=== PATIENT | female | born 1935 | race Caucasian/White ===

== ENCOUNTER 2016-12-14 01:11 | Observation (INO) | payer OTHER, MEDICARE ==
[~2016-12-14] VITALS: Ht 165.1 cm; Wt 70.8 kg
[~2016-12-14 01:11] MED LIST: ACETAMINOPHEN-COD #3 PO; ADVAIR 500-501 EACH INH; AUGMENTIN 875-1 EACH PO; CALTRATE 600600 MG PO; CENTRUM1 TA1 PO; CITALOPRAM HYDR20 MG PO; CLOPIDOGREL75 MG PO; COZAAR 100MG T100 MG PO; CRESTOR 10MG10 MG PO; DEEP SEA44 ML NAS; DIOVAN 160 MG160 MG PO; FERROUS SULFAT325 M1 PO; FERROUS SULFAT325 M3 PO; FOLIC ACID0.4 MG PO; FOLIC ACID0.8 MG PO; GOOD SENSE ASPI81 M1 PO; GUAIFENESI100 MG/5 M PO; GUAIFENESIN-COD10 ML PO; LEVOTHYROXINE0.05 M1 PO; LEVOTHYROXINE88 MCG PO; LOSARTAN POTASS50 M1 PO; MELOXICAM7.5 M1 PO; OCUVITE1 TA1 PO; PERCOCET 5-3251 EACH PO; SIMBRINZA 0.2%-18 ML OP; SYNTHROID75 MCG PO; TOPAMAX25 M1 PO; TYLENOL #31 TAB PO; TYLENOL325 M1 PO; VENTOLIN1 PUF INH; VITAMIN B122500 MCG PO; VITAMIN D1000 IU PO; VITAMIN D32000 I1 PO; XALATAN 0.50 GTT/1 B OPH; ZITHROMAX250 M2 PO
--- NOTE | 2016-12-14 16:38 | Operative Report ---
Operative/Inv Procedure Report Surgery Date: 12/14/16 Name of Procedure: Open reduction internal fixation of right humeral nonunion Bone grafting humeral nonunion Pre-Operative Diagnosis: Right humeral shaft nonunion Post-Operative Diagnosis: Same Estimated Blood Loss: 50ml to 100ml Surgeon/Molder Trimmer: REBECCA ESCALONA,Av TREJO Anesthesia: laryngeal mask airway Implants: 7-hole narrow [place] DCP plate Drains: None Specimens: None Complications: None Condition: Stable Operative Indication: Patient is an 80-year-old woman who injured her right dominant humerus. Patient injured the arm in June. She developed nonunion findings. Due to ongoing pain and lack of bony union on x-ray patient was treated with a bone stimulator which did not lead to full union. Therefore patient was instructed on options including open reduction internal fixation and bone grafting of the nonunion site. Due to the ongoing symptoms, she wished to proceed with surgical management. Risks, benefits and expectations of surgical and further nonsurgical options were discussed including but not limited to persistent arm pain, need for subsequent surgery, infection, injury to blood vessel or nerve, continued nonunion, malunion. Also specifically we discussed the fairly high risk of injuring the radial nerve which could lead to distal weakness. I discussed this with patient and family. They understood and wished to proceed with the surgical procedure that was recommended. Operative/Procedure Note Note: Technical description of the procedure. Patient was brought to the operating room and transferred to the operating table. Once under appropriate anesthesia the right upper extremity was prepped and draped in standard fashion. Preoperative IV antibiotics were given prophylactically. A anterior lateral incision was made just lateral to the biceps muscle belly. The incision was taken down careful dissection to the area of the nonunion site. There was a fairly large area of callus formation but clearly a nonunion below that. Portions of the callus were excised to access the nonunion site. After dissection and exposure of the fracture site I was satisfied with the position of the fracture. I was able to apply direct compression at the fracture site with manipulation. I should also mention that care was taken not to stray into the soft tissues posteriorly any dissection and needed to be done posteriorly was done and the subperiosteal fashion. This was in order to avoid any injury to the radial nerve. Also no traction was applied to the right upper extremity during manipulation of the fracture site. Care was also taken not to go too distal with our exposure since it was not necessary a son the fracture site. This would also avoid injury to the lateral cutaneous branch of the muscular cutaneous nerve. During the case hemostasis was obtained using cautery this was also done carefully to avoid any conduction to any nervous structure. Unsell was satisfied with the exposure and removal of some of the bone callus. Some of the bone callus was used as bone graft later on the case. I also used Vitoss bone substitute to fortify grafting. I placed 2 interfragmentary screws across the fracture site from anterior to posterior in standard fashion by over drilling the near cortex. Appropriate length screws were applied. I also made sure that I did not plunge through the far cortex in order to avoid any injury to underlying radial nerve structure. I was satisfied with the 2 compression screws. I then applied a 7-hole large fragment narrow DCP plate which fit patient's anatomy the best. I placed 3 bicortical screws proximally and distally. With the addition of the interfragmentary screws I had 8 cortices fixation proximally and distally. I was satisfied with this fixation. Copious irrigation followed. Hemostasis was obtained throughout the procedure. I then closed the interval between the biceps and brachialis loosely over the plate construct. Subcutaneous tissues closed in 2 layers with 2-0 Vicryl. The copious irrigation was done with antibiotic solution and this was done prior to application of the bone graft and the bone substitute. Skin was closed with a interrupted nylon suture Bee and appropriate dressings were applied and patient was awakened and taken the recovery room in good condition. No intraoperative complications blood loss was approximately 100 mL Discharge Disposition: PACU
[2016-12-14 19:00] VITALS: BP 100/50
--- NOTE | 2016-12-14 20:24 | NUR ---
NURSING NOTE; LATE ENTRY; PT ADMITTED TO FROM PACU AT 1900. PT ALERT AND OREINTEDX3. PT DENIES CP, +PULSES, 2LNC, DENIES SOB, LCTA. PT NAIMA DSG CDI, COVERED BY AN ADAM DSG. PT SKIN INTACT. PT COMPLAINS OF PAIN 5 OUT OF 10 PAIN AT THIS TIME. PRN PAIN MED GIVEN. PT ORIENTED TO ROOM AND CALL DE LUNA. WILL CONTINUE TO MONITOR.
[2016-12-14 22:19] VITALS: BP 102/58
[2016-12-15 00:45] VITALS: BP 126/60
[2016-12-15 03:06] VITALS: BP 110/58
--- NOTE | 2016-12-15 06:21 | NUR ---
PT C/O CHEST PAIN DESCRIBED "LIKE SOMENE KICKED ME". VSS, NOTIFIED SURGICAL CEFERINO PHELPS.
--- NOTE | 2016-12-15 06:24 | NUR ---
TROPONIN AND EKG ORDERED.
--- NOTE | 2016-12-15 06:45 | PN- Orthopedic ---
Subjective Subjective: Called just prior to this note by RN stating that patient c/o left sided chest pain. Patient seen bedside immediately after. Per patient her pain is 2-3/10 on her left lateral side. Describes it as a dull achy pain. States it is new but she has been sleeping on her left side for several weeks due to her right humerus fracture. Denies pain radiating. Denies numbness/tingling in her left jaw, neck, arm. No further c/o. Right arm pain tolerable. Tolerating diet, no n/v. +flatus, no BM. Denies SOB. Objective Vital Signs and I&Os Vital Signs Date Time Temp Pulse Resp B/P Pulse O2 O2 Flow FiO2 Ox Delivery Rate 12/15 0306 97.7 73 18 110/58 98 Nasal 2.0L Cannula 12/15 0045 97.5 71 18 126/60 100 Nasal 2.0L Cannula 12/15 0000 100 Nasal 2.0L Cannula 12/14 2219 98.0 71 18 102/58 97 12/14 1900 97 Nasal 2.0L Cannula 12/14 1900 97.6 76 18 100/50 97 Nasal 2.0L Cannula Intake & Output 12/15 0800 12/15 0000 12/14 1600 12/14 0800 12/14 0000 12/13 1600 Intake Total 720 800 Output Total 300 400 Balance 420 400 Intake, IV 600 300 Intake, Oral 120 500 Output, Urine 300 400 Patient 156 lb Weight Physical Exam: Gen: comfortable, NAD, A&Ox3 Chest: CTAB, good lung expansion b/l. RRR. Reproducible pain in left chest just lateral to inferior part of sternum. Abd: Soft, NT, ND Ext: Left arm dressing c/d/i, splinted in sling. No calve swelling/TTP. N/V intact x4 extremities. Current Medications: Current Medications Sig/Sujey Start time Last Medication Dose Route Stop Time Status Admin Acetaminophen 650 MG Q4P PRN 12/14 1914 AC PO Acetaminophen 1,000 MG .STK-MED ONE 12/14 1249 DC IV 12/14 1250 Al Hydroxide/Mg 30 ML Q6P PRN 12/14 1914 AC 12/15 Hydroxide PO 0612 Albuterol Sulfate 2 PUF EVERY FOUR HOURS PRN 12/14 1530 AC INH Aspirin 81 MG DAILY 12/15 1000 AC PO Atorvastatin Calcium 40 MG 1700 12/14 1700 AC PO Budesonide/ 2 PUF BID 12/14 2200 AC 12/14 Formoterol Fumarate INH 2208 Cefazolin Sodium 2 GM Q8H 12/14 2200 DC 12/15 N/A 1 UNIT IV 12/15 0629 0510 Cefazolin Sodium 2,000 GM SEE ADMIN CRITERIA 12/14 1914 CAN IV 12/15 1544 Cefazolin Sodium 1,000 MG ONCE 12/14 0000 DC IV 12/14 2359 Citalopram 20 MG DAILY 12/15 1000 AC Hydrobromide PO Dextrose/Lactated 1,000 ML Q13H 12/14 1914 AC 12/14 Ringer's IV 1928 Docusate Sodium 100 MG DAILY NEEDED PRN 12/14 1914 AC PO Fentanyl Citrate 250 MCG .STK-MED ONE 12/14 1249 DC IM 12/14 1250 Ferrous Sulfate 325 MG TID 12/14 1600 AC 12/14 PO 2208 Hydromorphone HCl 0.4 MG Q4P PRN 12/14 1914 AC 12/15 IV 0242 Latanoprost 1 GTT AT BEDTIME 12/14 2200 AC 12/14 OPH 2208 Levothyroxine Sodium 0.088 MG DAILY AC 12/15 0700 AC 12/15 PO 0608 Losartan Potassium 50 MG DAILY 12/15 1000 AC PO Midazolam HCl 2 MG .STK-MED ONE 12/14 1250 DC IM 12/14 1251 Ondansetron HCl 4 MG Q6P PRN 12/14 1914 AC IV Oxycodone/ 1 TAB Q4P PRN 12/14 1914 AC Acetaminophen PO Oxycodone/ 2 TAB Q4P PRN 12/14 1914 AC 12/14 Acetaminophen PO 2207 Results Last 48 Hours of Labs: Laboratory Tests 12/15 0635 Chemistry Troponin I Pending Assessment/Plan Assessment/Plan 81yo F POD#1 s/p ORIF right humerus. Patient had reproducible left sided CP. Otherwise, AVSS, patient hemodynamically stable. - f/u troponin - pain control - PRN zofran - I/O's - asa 81mg PO daily - ALPS - OOB and ambulate - NWB RUE - sling to RUE - If troponins negative will likely dc home today - discussed with Dr. Komninakas Core Measures/Miscellaneous Venous Thromboembolism VTE Risk Factors: Age > 40, Surgery VTE Contraindications: Active Bleeding, No Contraindications (surigcal) VTE Prophylaxis Ordered Inpt: Mechanical (ALPS/TEDS) VTE Diagnosis: No Beta Harriett Is Beta Harriett a Home Med? Yes Antibiotics Is Patient on Antibiotics? No
[2016-12-15 07:22] VITALS: BP 118/62
[2016-12-15] MEDS ORDERED: COLACE100 M1 PO (08:09)
[2016-12-15] MEDS ORDERED: PERCOCET 5-3251 EACH PO (08:09)
--- NOTE | 2016-12-15 08:11 | Patient Discharge Instructions ---
Discharge Instructions General Discharge Information You were seen/treated for: Right humeral shaft nonunion You had these procedures: 12/14/16 Open reduction internal fixation of right humeral nonunion Bone grafting humeral nonunion Watch for these problems: Redness, swelling, fever, signs of infection. Uncontrolled pain, Excessive bleeding. Decreased range of motion. Chest pain, shortness of breath. Do not soak the wound: Yes No bath, but you may shower: Yes (Cover splint/dressing) Special Instructions: Leave splint/dressing in place until f/u appointment Diet Continue normal diet: Yes Activity Activity Self Limited: Yes Activity Limited to: No weight bearing (Right arm) Acute Coronary Syndrome Inclusion Criteria At DC or during hospital stay patient has or had the following: ACS DIAGNOSIS No Discharge Core Measures Meds if any: Prescribed or Continued at Discharge Meds if any: NOT Prescribed or Continued at Discharge Congestive Heart Failure Inclusion Criteria At DC or during hospital stay patient has or had the following: CHF DIAGNOSIS No Discharge Core Measures Meds if any: Prescribed or Continued at Discharge Meds if any: NOT Prescribed or Continued at Discharge Cerebrovascular accident Inclusion Criteria At DC or during hospital stay patient has or had the following: CVA/TIA Diagnosis No Discharge Core Measures Meds if any: Prescribed or Continued at Discharge Meds if any: NOT Prescribed or Continued at Discharge Venous thromboembolism Inclusion Criteria VTE Diagnosis No VTE Type NONE VTE Confirmed by (Test) NONE Discharge Core Measures - Per Current guidelines, there needs to be overlap - treatment for the first 5 days of Warfarin therapy. - If discharged on Warfarin prior to 5 days of - overlap therapy, the patient will need to be - assessed for post discharge needs including - *Post discharge parental anticoagulation - *Warfarin and/or parental anticoagulation education - *Follow up date to check INR post discharge At least 5 days overlap therapy as Inpatient No Meds if any: Prescribed or Continued at Discharge Note: Overlap Therapy is Warfarin and Anticoagulant Meds if any: NOT Prescribed or Continued at Discharge
--- NOTE | 2016-12-15 08:16 | Surg Short-stay <48hrs Dis Sum ---
Visit Information Visit Dates Admission Date: 12/14/16 Discharge Date: 12/15/16 Surgical Short Stay DC Summary Admission Diagnosis: Right humeral shaft nonunion Final Diagnosis: Same Procedure(s): 12/14/16 ORIF right humerus non-union fx Summary/Significant Findings: Patient admitted to floor following procedure below. Patient ambulated upon arrival to the floor. Patient continued to progress well. Upon discharge patient is afebrile, tolerating diet, pain controlled, ambulating well. Condition at Discharge: Good Discharge Disposition: home or self care Discharge instructions provided to patient/family: Yes Post discharge follow-up plan: Follow-up with Dr. Wilde in 1 week. Call to schedule/confirm appointment.
[2016-12-15 13:00] VITALS: BP 120/66
--- NOTE | 2016-12-15 15:24 | NUR ---
NURSING NOTE: PATIENT A/OX3, DENIES PAIN AT THIS TIME. PRESCRIPTIONS BROUGHT DOWN TO PHARMACY, WILL THREAD SINGER ON WAY OUT. PATIENT R ARM IN SLING. ALL BELONGINGS WITH PATIENT. PATIENT LEFT FLOOR VIA W/C WITH DISTRIBUTION AND FAMILY.
== END 2016-12-15 15:15 | disposition home health service (06) ==
LOC: ENRESERVDT → ENRESERVTM → STS 01:11 → PACUH 15:24 → 2NB 15:24 → ENPENDDIS 15:24 → 2NB 18:52
PROVIDERS: ADMIT Orthopaedic Surgery
DX: S42.301K Unspecified fracture of shaft of humerus, right arm, subsequent encounter for fracture with nonunion (principal)
CPT/HCPCS: 1328; 1425; 1530; 1748; 93005; 93010; 97116-GP; 97161-GP; 97530-GP; C1713; G8978-GP; G8979-GP; G8980-GP; J0131; J0690; J1170; J2405; J3490

== ENCOUNTER 2016-12-16 15:55 | Emergency (ER) | payer OTHER, MEDICARE ==
[~2016-12-16] VITALS: Ht 160 cm; Wt 68.9 kg
[~2016-12-16 15:55] MED LIST changes: +COLACE100 M1 PO
--- NOTE | 2016-12-16 16:56 | ED GENERAL ADULT ---
History of Present Illness General Chief Complaint: General Adult Stated Complaint: PER DAUGHTER,"HER NURSE TO BRING HER DOWN" Source: patient, family, old records Exam Limitations: no limitations Vital Signs & Intake/Output Vital Signs & Intake/Output Vital Signs Date Time Temp Pulse Resp B/P Pulse O2 O2 Flow FiO2 Ox Delivery Rate 12/16 1946 99.2 85 15 119/56 97 Room Air Room Air 12/16 1857 98.9 84 16 165/68 97 Room Air 12/16 1658 95 12/16 1628 98.8 104 20 99/64 95 Room Air Room Air ED Intake and Output 12/17 0000 12/16 1200 Intake Total 1100 Output Total Balance 1100 Intake, IV 1100 Patient 152 lb Weight Allergies Coded Allergies: ondansetron (From ZOFRAN ( HYDROCHLORIDE)) (Mild, RASH 05/01/16) diazepam (WENT INTO SHOCK AND BUBBLE ON THE BRAIN 05/01/16) latex (RASH 05/01/16) lidocaine (RASH 05/01/16) morphine (Severe, LETHARGY 05/01/16) Reconcile Medications Albuterol Sulfate (Ventolin) 1 UNIT PUF 2 PUFF INH DAILY ASTHMA (Reported) Aspirin 81 MG TAB.CHEW 1 TAB PO DAILY HEART DISEASE (Reported) Citalopram Hydrobromide (Citalopram HBr) 20 MG TABLET 20 MG PO DAILY DEPRESSION (Reported) Docusate Sodium (Colace) 100 MG CAPSULE 1 CAP PO BID PRN CONSTIPATION Ferrous Sulfate 325 MG TAB 325 mg PO TID ANEMIA (Reported) Fluticasone/Salmeterol (Advair 500-50 Diskus) (Unknown Strength) BLST.W.DEV ( Unknown Dose) INH DAILY RESPIRATORY (Reported) Levothyroxine Sodium 88 MCG TABLET 1 TAB PO DAILY THYROID (Reported) Losartan Potassium 50 MG TABLET 1 TAB PO DAILY Hypertension Oxycodone HCl/Acetaminophen (Percocet 5-325 MG Tablet) 5 MG-325 MG TABLET 1-2 TAB PO Q4-6 PRN PAIN Rosuvastatin Calcium (Crestor) 10 MG TABLET 1 TAB PO DAILY HIGH CHOLESTEROL ( Reported) Triage Note: PT TO ED WITH C/O LETHARGIC, COUGH, HEADACHE, TEMP 102 AT HOME. TYLENOL GIVEN APPROX 2 HOURS AGO. TAKING OXYCODONE FOR R HUMERUS PAIN S/O FRACTURE/SURGERY IN JUNE, HAD CHOLY FEBRUARY, HAD PNEUMONIA AFTER THE GALLBLADDER SURGERY. Triage Nurses Notes Reviewed? yes HPI: Patient is an 81-year-old female brought in by her daughter for evaluation of cough, fevers, lethargy. Patient is status post right humerus repair on December [address] Wilde. Surgery was same-day, patient was discharged on oxycodone. Taking 1 dose a day at approximately 1130 each morning. Daughter reports significant lethargy continuous x 2 days. Today patient began with cough with anders sputum production. Patient's visiting nurse came today and directed the patient to the emergency department for further evaluation. Patient's daughter reports fever up to 102F. Patient took Tylenol 2 hours prior to arrival. Mild bloody drainage from the surgical site noted by patient's daughter today. Pain is severe in the right humerus. denies abdominal pain, nausea, vomiting, urinary symptoms (BEAU VENEGAS) Past History Travel History Traveled to [place] past 21 day No Medical History Any Pertinent Medical History? 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 FATHER Sciatica Hx Contributory? No (BEAU VENEGAS) Review of Systems Review of Systems Constitutional: Reports: fever, malaise, weakness. EENTM: Reports: no symptoms. Respiratory: Reports: cough, sputum production. Cardiovascular: Denies: chest pain, syncope. GI: Denies: abdominal pain, diarrhea, vomiting. Genitourinary: Reports: no symptoms. Musculoskeletal: Reports: see HPI (right humerus). Skin: Reports: no symptoms. Neurological/Psychological: Reports: weakness. Denies: headache, numbness. Hematologic/Endocrine: Reports: bleeding (from surgical wound). Immunologic/Allergic: Denies: splenectomy, lymphadenopathy. (BEAU VENEGAS) Physical Exam Physical Exam General Appearance: lethargic (easily arousable) Head: atraumatic, normal appearance Eyes: Bilateral: PERRL, EOMI, other (pupils 2mm). Ears, Nose, Throat: normal pharynx, normal ENT inspection, hearing grossly normal Neck: normal inspection, supple, full range of motion Respiratory: chest non-tender Cardiovascular: regular rate/rhythm Peripheral Pulses: 2+ radial (R) Gastrointestinal: normal bowel sounds, soft, non-tender Back: normal inspection, normal range of motion Extremities: surgical wound right humerus. No drainage, no surrounding erythema Neurologic/Psych: lethargic, easily arousable to verbal stimuli Skin: warm/dry Lymphatic: no anterior cervical kennedi Core Measures ACS in differential dx? Yes ASA ordered for poss ACS? No-ACS ruled out CVA/TIA Diagnosis: No Severe Sepsis Present: No Septic Shock Present: No (BEAU VENEGAS) Progress Differential Diagnoses I considered the following diagnoses in my evaluation of the patient: Diagnostic Imaging: Viewed by Me: Radiology Read. Discussed w/RAD: Radiology Read. Radiology Impression: PATIENT: RASHAD ARNOLD PRESENT AGE: 81 PATIENT ACCOUNT NO: [id number] : 35 LOCATION: [facility] ORDERING PHYSICIAN: BEAU PHELPS SERVICE DATE: 12/16/16 EXAM TYPE: CAT - CT HEAD WO IV CONTRAST EXAMINATION: CT HEAD WITHOUT CONTRAST CLINICAL INFORMATION: 81-year-old woman with confusion and lethargy. COMPARISON: 07/13/[address] TECHNIQUE: Contiguous axial imaging was performed from the skull base to vertex without intravenous administration of contrast. DLP: 601 mGy-cm. FINDINGS: There is no evidence of acute intracranial hemorrhage or territorial infarction. No abnormal mass effect or midline shift is seen. Anders to white matter differentiation is well preserved. No extra-axial fluid collections are identified. The ventricles are normal in size. Moderate to severe chronic microvascular ischemic changes are again seen throughout the supratentorial white matter. The osseous structures and soft tissues are normal. Mild mucosal thickening is noted in the ethmoid air cells. IMPRESSION: No acute intracranial pathology. DICTATED BY: MIGUEL KELLY MD DATE/TIME DICTATED:12/16/161852 RANGE CONSERVATIONIST:GLENYS DATE/TIME TRANSCRIBED:12/16/161852 CONFIDENTIAL, DO NOT COPY WITHOUT APPROPRIATE AUTHORIZATION. <Electronically signed in Other Vendor System> SIGNED BY: MIGUEL KELLY MD 12/16/161856, PATIENT: RASHAD ARNOLD PRESENT AGE: 81 PATIENT ACCOUNT NO: [id number] : 35 LOCATION: [facility] ORDERING PHYSICIAN: BEAU PHELPS SERVICE DATE: 12/16/16 EXAM TYPE: CAT - CT CHEST WO IV CONTRAST EXAMINATION: CT CHEST WITHOUT CONTRAST CLINICAL INFORMATION: Cough and fevers. Lethargy. COMPARISON: Chest x-ray from earlier the same day. CT chest from 02/21/2016. TECHNIQUE: Multidetector volumetric CT imaging of the chest was done. Axial MIP volume rendering provided. Sagittal and coronal reformatted images were obtained. DLP: 302 mGy-cm. FINDINGS: UNIVERSITY MANAGER: Hardware along the right humeral shaft. Clips in the right axilla. LUNGS: Since the prior CT, there has been resolution of the previously noted bilateral pleural effusions as well as associated compressive atelectasis. There is mild fibrotic change along the anterior aspect of the right upper and middle lobes compatible with post treatment related change. Clips in the right axilla are redemonstrated. These findings are compatible with the history of right breast cancer. Platelike and nodular opacities in the right middle lobe and lingula are stable from the prior and are most suggestive of scarring. There is no new consolidation. The central airways are patent. MEDIASTINUM: The heart and pericardium are unremarkable apart from coronary calcifications. The thoracic aorta appears normal in caliber with scattered atherosclerotic calcification. No mediastinal or hilar adenopathy is convincingly appreciated. UPPER ABDOMEN: Unremarkable. OSSEOUS STRUCTURES: There is a mild dextroconvex thoracic scoliosis and multilevel spondylosis without compression deformity. No lytic or sclerotic osseous lesions suspicious for malignancy are convincingly visualized. IMPRESSION: Posttreatment related changes in the right lung. No evidence of acute intrathoracic abnormality. DICTATED BY: DANIEL LANDEROS MD DATE/TIME DICTATED:12/16/161855 RANGE CONSERVATIONIST:GLENYS DATE/TIME TRANSCRIBED:12/16/161855 CONFIDENTIAL, DO NOT COPY WITHOUT APPROPRIATE AUTHORIZATION. <Electronically signed in Other Vendor System> SIGNED BY: DANIEL LANDEROS MD 12/16/16 190 CXR Impression: PATIENT: RASHAD ARNOLD PRESENT AGE: 81 PATIENT ACCOUNT NO: [id number] : 35 LOCATION: [facility] ORDERING PHYSICIAN: BEAU PHELPS SERVICE DATE: 12/16/16-1655 EXAM TYPE: RAD - XRY-PORTABLE CHEST XRAY EXAMINATION: XR PORTABLE CHEST CLINICAL INFORMATION: Cough, recent surgery. COMPARISON: 08/06/2016. TECHNIQUE: Portable view of the chest was obtained. FINDINGS: The cardiomediastinal silhouette is within normal limits. There is moderate smooth biapical pleural thickening unchanged. Lung volumes appear somewhat diminished. The lungs and pleural spaces appear clear. There is no evidence of pneumothorax or pulmonary edema. Included osseous structures appear largely unremarkable. Postsurgical changes suggest a previous right lumpectomy and axillary dissection. IMPRESSION: No acute intrathoracic process is identified. DICTATED BY: AC AVILES MD DATE/TIME DICTATED:12/16 RANGE CONSERVATIONIST:GLENYS DATE/TIME TRANSCRIBED:12/16/161716 CONFIDENTIAL, DO NOT COPY WITHOUT APPROPRIATE AUTHORIZATION. <Electronically signed in Other Vendor System> SIGNED BY: AC AVILES MD 12/16/161723 Initial ED EKG: normal axis, normal intervals, normal p-waves, normal QRS complex, normal sinus rhythm, no ST T wave changes Prior EKG: unchanged (MEGHNA PHELPS,BEAU) Plan of Care: Orders Procedure Date/time Status LACTIC ACID 12/16 1955 Active URINALYSIS 12/16 172 Active BLOOD CULTURE 12/16 1655 Active TROPONIN LEVEL 12/16 1655 Complete LACTIC ACID 12/16 1655 Complete COMPREHENSIVE METABOLIC PANEL 12/16 1655 Complete CBC WITHOUT DIFFERENTIAL 12/16 1655 Complete EKG 12/16 1655 Active Laboratory Tests 12/16/16 171: Anion Gap 9, Estimated GFR > 60, BUN/Creatinine Ratio 20.0, Glucose 109 H, Lactic Acid 0.8, Calcium 8.8, Total Bilirubin 0.8, AST 46 H, ALT 40, Alkaline Phosphatase 101, Troponin I < 0.01, Total Protein 6.6, Albumin 3.6, Globulin 3.0 , Albumin/Globulin Ratio 1.2, CBC w Diff NO MAN DIFF REQ, RBC 3.50 L, MCV 82.6, MCH 27.3, RDW 17.8 H, MPV 8.3, Gran % 72.3, Lymphocytes % 18.0 L, Monocytes % 8.4, Eosinophils % 0.9, Basophils % 0.4, Absolute Granulocytes 5.1, Absolute Lymphocytes 1.3, Absolute Monocytes 0.6, Absolute Eosinophils 0.1, Absolute Basophils 0, PUBS MCHC 33.0 Microbiology 12/16 1851 BLOOD: Blood Culture - RECD 12/16 171 BLOOD: Blood Culture - RECD 1809: Results of labs and imaging discussed with the patient and her daughter. Patient continues to be lethargic, easily arousable. Oxygen saturation 92-93% on room air. Patient's daughter reports that patient has been extremely lethargic and she has only been receiving 1 dose of oxycodone each day. Despite only receiving 1 dose patient is lethargic several hours even almost up to 24 hours after the administration of a dose of pain medication. Aside from cough no other infectious symptoms reported by patient or her daughter. CT scan of the head ordered, CT scan of the chest ordered to rule out occult infection. 1914: CT head and chest unremarkable. Suspect adverse drug reaction. Discussed with and seen by Dr. Hong. 1924: Patient re-evaluated: patient more alert, oxygen saturation 97% on room air. Patient now reporting that she took 2 tabs of percocet prior to bedtime last night. Suspect that her lethargy and sedation was medication induced as patient is becoming more alert. Patient lives with her daughter. Discussed significantly reducing patient's pain medication dosing. Patient's visiting nurse will be coming to the house tomorrow. Appears stable for discharge and instructed to return immediately if any worsening. (BEAU VENEGAS) Departure Departure Time of Disposition: 1925 Disposition: HOME OR SELF CARE Condition: Stable Clinical Impression Primary Impression: Adverse drug reaction Referrals: VITOR ESCALONA,JUANA (PCP/Family) Additional Instructions: Take Percocet for pain control, 1 dose every 8-12 hours as needed. Do not take any additional doses of percocet if lethargic or sedated. Follow up with your primary doctor next week. Return to the ER if increasing sedation, lethargy, confusion, difficulty breathing or worsening of symptoms. Departure Forms: Customer Survey General Discharge Information (BEAU VENEGAS) PA/SCARIFIER OPERATOR Co-Sign Statement Statement: ED Attending supervision documentation- [x] I saw and evaluated the patient. I have also reviewed all the pertinent lab results and diagnostic results. I agree with the findings and the plan of care as documented in the PA's/SCARIFIER OPERATOR's documentation. [] I have reviewed the ED Record and agree with the PA's/SCARIFIER OPERATOR's documentation. [] Additions or exceptions (if any) to the PAs/SCARIFIER OPERATOR's note and plan are summarized below: [] (ANNAMARIE ESCALONA,SOURAV Kim) PA/SCARIFIER OPERATOR Co-Sign Statement Statement: ED Attending supervision documentation- [] I saw and evaluated the patient. I have also reviewed all the pertinent lab results and diagnostic results. I agree with the findings and the plan of care as documented in the PA's/SCARIFIER OPERATOR's documentation. [] I have reviewed the ED Record and agree with the PA's/SCARIFIER OPERATOR's documentation. [] Additions or exceptions (if any) to the PAs/SCARIFIER OPERATOR's note and plan are summarized below: [] (SOURAV HONG DO) Critical Care Note Critical Care Note Critical Care Time: non-applicable (BEAU VENEGAS)
[2016-12-16 17:23] LABS: ABSOLUTE BASOPHIL COUNT 0 /CUMM (0.0-0.2); ABSOLUTE EOSINOPHIL COUNT 0.1 /CUMM (0.0-0.7); ABSOLUTE GRANULOCYTE CT 5.1 /CUMM (1.4-6.5); ABSOLUTE LYMPH COUNT 1.3 /CUMM (1.2-3.4); ABSOLUTE MONOCYTE COUNT 0.6 /CUMM (0.10-0.60); BASOPHIL % 0.4 % (0.0-2.0); EOSINOPHIL % 0.9 % (0-5); GRANULOCYTE % 72.3 % (42.2-75.2); HEMATOCRIT 28.9 % (37-47); MEAN CORPUSCULAR HGB 27.3 PG (27.0-31.0); MEAN CORPUSCULAR VOLUME 82.6 FL (81.0-99.0); MEAN PLATELET VOLUME 8.3 FL (7.4-10.4); PLATELET COUNT 133 /CUMM (130-400); RBC DISTRIBUTION WIDTH 17.8 % (11.5-14.5); WHITE BLOOD CELL COUNT 7.1 /CUMM (4.8-10.8)
--- NOTE | 2016-12-16 17:24 | RADIOLOGY REPORT ---
EXAMINATION: XR PORTABLE CHEST CLINICAL INFORMATION: Cough, recent surgery. COMPARISON: 08/06/2016. TECHNIQUE: Portable view of the chest was obtained. FINDINGS: The cardiomediastinal silhouette is within normal limits. There is moderate smooth biapical pleural thickening unchanged. Lung volumes appear somewhat diminished. The lungs and pleural spaces appear clear. There is no evidence of pneumothorax or pulmonary edema. Included osseous structures appear largely unremarkable. Postsurgical changes suggest a previous right lumpectomy and axillary dissection. IMPRESSION: No acute intrathoracic process is identified.
--- NOTE | 2016-12-16 18:57 | CT SCAN REPORT ---
EXAMINATION: CT HEAD WITHOUT CONTRAST CLINICAL INFORMATION: 81-year-old woman with confusion and lethargy. COMPARISON: 07/13/[address] TECHNIQUE: Contiguous axial imaging was performed from the skull base to vertex without intravenous administration of contrast. DLP: 601 mGy-cm. FINDINGS: There is no evidence of acute intracranial hemorrhage or territorial infarction. No abnormal mass effect or midline shift is seen. Anders to white matter differentiation is well preserved. No extra-axial fluid collections are identified. The ventricles are normal in size. Moderate to severe chronic microvascular ischemic changes are again seen throughout the supratentorial white matter. The osseous structures and soft tissues are normal. Mild mucosal thickening is noted in the ethmoid air cells. IMPRESSION: No acute intracranial pathology.
--- NOTE | 2016-12-16 19:06 | CT SCAN REPORT ---
EXAMINATION: CT CHEST WITHOUT CONTRAST CLINICAL INFORMATION: Cough and fevers. Lethargy. COMPARISON: Chest x-ray from earlier the same day. CT chest from 02/21/2016. TECHNIQUE: Multidetector volumetric CT imaging of the chest was done. Axial MIP volume rendering provided. Sagittal and coronal reformatted images were obtained. DLP: 302 mGy-cm. FINDINGS: WIRE ROPE SALES REPRESENTATIVE: Hardware along the right humeral shaft. Clips in the right axilla. LUNGS: Since the prior CT, there has been resolution of the previously noted bilateral pleural effusions as well as associated compressive atelectasis. There is mild fibrotic change along the anterior aspect of the right upper and middle lobes compatible with post treatment related change. Clips in the right axilla are redemonstrated. These findings are compatible with the history of right breast cancer. Platelike and nodular opacities in the right middle lobe and lingula are stable from the prior and are most suggestive of scarring. There is no new consolidation. The central airways are patent. MEDIASTINUM: The heart and pericardium are unremarkable apart from coronary calcifications. The thoracic aorta appears normal in caliber with scattered atherosclerotic calcification. No mediastinal or hilar adenopathy is convincingly appreciated. UPPER ABDOMEN: Unremarkable. OSSEOUS STRUCTURES: There is a mild dextroconvex thoracic scoliosis and multilevel spondylosis without compression deformity. No lytic or sclerotic osseous lesions suspicious for malignancy are convincingly visualized. IMPRESSION: Posttreatment related changes in the right lung. No evidence of acute intrathoracic abnormality.
[2016-12-16 19:47] VITALS: BP 119/56
== END 2016-12-16 19:48 ==
LOC: ERH 15:55
PROVIDERS: Physician Assistant
DX: T40.2X5A Adverse effect of other opioids, initial encounter (principal); R50.9 Fever, unspecified; R53.83 Other fatigue
CPT/HCPCS: 87040; 93005; 93010; 96374; J0131

== ENCOUNTER 2018-05-05 15:48 | Observation (INO) | payer OTHER, MEDICARE ==
[~2018-05-05] VITALS: Ht 162.6 cm; Wt 72.6 kg
[~2018-05-05 15:48] MED LIST changes: +ALBUTEROL1.25 MG/1 INH/SOL; +ALBUTEROL2.5 MG/3 M INH/SOL; +ALPHAGAN P5 M1 OPH; +ASPIRIN EC81 M1 PO; +AZITHROMYCIN250 M1 PO; +BENZONATATE100 M1 PO; +CALCIUM 500 +1 EAC5 PO; +CENTRUM ADULTS1 EACH PO; +CITALOPRAM HBR20 MG PO; +CRESTOR10 M1 PO; +FOLIC ACID0.8 M1 PO; +GUAIFENESIN ER600 MG PO; +LATANOPROST2.5 ML OU; +LEVO-T75 MCG PO; +PROAIR HFA8.5 GM INH; +SIMBRINZA 1%-0.28 ML OU; +TESSALON PERLE100 M1 PO; +VITAMIN B-121000 MC3 PO; +VITAMIN D1000 UNIT PO; +[UNRECOGNIZED DRUG - SUPPLY]
[2018-05-05 16:24] LABS: ABSOLUTE BASOPHIL COUNT 0 /CUMM (0.0-0.2); ABSOLUTE EOSINOPHIL COUNT 0.1 /CUMM (0.0-0.7); ABSOLUTE GRANULOCYTE CT 2.1 /CUMM (1.4-6.5); ABSOLUTE LYMPH COUNT 0.9 /CUMM (1.2-3.4); ABSOLUTE MONOCYTE COUNT 0.3 /CUMM (0.10-0.60); BASOPHIL % 1.2 % (0.0-2.0); EOSINOPHIL % 3.8 % (0-5); GRANULOCYTE % 60.6 % (42.2-75.2); HEMATOCRIT 35.6 % (37-47); MEAN CORPUSCULAR HGB 27.3 PG (27.0-31.0); MEAN CORPUSCULAR HGB CONC 33.5 G/DL (33.0-37.0); MEAN CORPUSCULAR VOLUME 81.5 FL (81.0-99.0); MEAN PLATELET VOLUME 8.8 FL (7.4-10.4); PLATELET COUNT 152 /CUMM (130-400); RBC DISTRIBUTION WIDTH 18.1 % (11.5-14.5); RED BLOOD CELL CT 4.37 /CUMM (4.20-5.40); WHITE BLOOD CELL COUNT 3.4 /CUMM (4.8-10.8)
--- NOTE | 2018-05-05 16:24 | ED GENERAL ADULT ---
See Addendum History of Present Illness General Chief Complaint: General Adult Stated Complaint: N/V GENERALIZED WEAKNESS Source: patient Exam Limitations: no limitations Vital Signs & Intake/Output Vital Signs & Intake/Output Vital Signs Date Time Temp Pulse Resp B/P B/P Pulse O2 O2 Flow FiO2 Mean Ox Delivery Rate 05/06 0623 97.0 71 20 127/60 94 Room Air 05/05 2258 98.5 72 20 110/58 98 Room Air 05/05 2124 98.3 77 18 148/73 93 Room Air 05/05 1948 98.6 80 20 154/70 93 Room Air 05/05 1555 98.2 78 16 145/68 92 Room Air 05/05 1554 92 Room Air ED Intake and Output 05/06 0000 05/05 1200 Intake Total 1000 Output Total 300 Balance 700 Intake, IV 1000 Output, Urine 300 Patient 160 lb Weight Weight Reported by Patient Measurement Method Allergies Coded Allergies: ondansetron (From ZOFRAN ( HYDROCHLORIDE)) (Mild, RASH 05/01/16) diazepam (WENT INTO SHOCK AND BUBBLE ON THE BRAIN 05/01/16) latex (RASH 05/01/16) lidocaine (RASH 05/01/16) morphine (Severe, LETHARGY 05/01/16) Triage Note: PT BIBA FROM HOME WITH C/O GENERALIZED WEAKNESS x 2-3 DAYS AND +N/V TODAY. PT REPORTS THAT FOR "A FEW DAYS" SHE HAS FELT WEAK, TIRED, AND CHILLED. DENIES FEVERS, N/V UNTIL TODAY. Triage Nurses Notes Reviewed? yes Onset: Abrupt Duration: day(s): (1-2), constant, continues in ED, getting worse Timing: single episode today Injury Environment: home Severity: mild, moderate No Modifying Factors: none LMP (ages 10-50): unknown : No Patient currently breastfeeds: No HPI: 82-year-old female history of CVA, TIA, COPD, diabetes hypothyroidism presents for evaluation of change in mental status. According to the family the patient has been very lethargic reporting nausea and abdominal pain. Normal patient is able to walk and is alert and oriented 3 however the past few days been very lethargic reporting nausea and not eating very much. Patient currently is responsive to only painful and loud verbal stimuli. She is unable to contract due to the history. She's never had some eye was having before. She said no fevers no urinary symptoms no chest pain no fever. No rashes. Family denies any slurred speech or 1 sided weakness. There's been no change in her medications. (Santino PHELPS,Chet) Reconcile Medications Albuterol Sulfate (Proair Hfa) 90 MCG HFA.AER.AD 2 PUF INH Q4-6 PRN PRN COPD (Reported) Albuterol Sulfate 2.5 MG/3 ML (0.083 %) VIAL.NEB 1 Vial INH/ROMULO Q4P PRN COPD Amoxicillin/Potassium Clav (Augmentin 875-125 Tablet) 875 MG-125 MG TABLET 1 TAB PO BID pneumonia . Aspirin (Ecotrin*) 81 MG TABLET.DR 1 TAB PO DAILY HEART/BLOOD (Reported) Benzonatate 100 MG CAPSULE 100 MG PO TID PRN cough . Brinzolamide/Brimonidine Tart (Simbrinza 1%-0.2% Eye Drops) 1 %-0.2 % DROPS.SUSP 1 DROP OU BID BOTH EYES (Reported) Calcium Carbonate/Vitamin D3 (Calcium 500 + D Tablet) 500 MG-400 TABLET 1 TAB PO DAILY SUPPLEMENT (Reported) Cholecalciferol (Vitamin D3) (Vitamin D) 1,000 UNIT TABLET 2 TAB PO DAILY SUPPLEMENT (Reported) Citalopram Hydrobromide (Citalopram HBr) 20 MG TABLET 1 TAB PO DAILY MENTAL HEALTH (Reported) Cyanocobalamin (Vitamin B-12) 1,000 MCG TABLET 0.5 TAB PO DAILY SUPPLEMENT ( Reported) Docusate Sodium (Colace) 100 MG CAPSULE 1 CAP PO DAILY STOOL SOFTENER ( Reported) Ferrous Sulfate 325 MG (65 MG IRON) TABLET 1 TAB PO DAILY SUPPLEMENT ( Reported) Fluticasone/Salmeterol (Advair 500-50 Diskus) 500 MCG-50 MCG/DOSE BLST.W.DEV 1 PUF INH BID COPD (Reported) Folic Acid 0.8 MG CAPSULE 1 CAP PO DAILY SUPPLEMENT (Reported) Guaifenesin (Guaifenesin ER) 600 MG TAB.ER.12H 600 MG PO Q12 cough .. Latanoprost 0.005 % DROPS 1 GTT OU QPM BOTH EYES (Reported) Levothyroxine Sodium (Levo-T) 75 MCG TABLET 1 TAB PO DAILY THYROID (Reported) Losartan Potassium 50 MG TABLET 1 TAB PO DAILY Hypertension Multivitamin/Iron/Folic Acid (Centrum Adults Tablet) 18 MG IRON-400 MCG TABLET 1 TAB PO DAILY SUPPLEMENT (Reported) Rosuvastatin Calcium (Crestor) 10 MG TABLET 1 TAB PO DAILY CHOLESTEROL ( Reported) Core Measure Meds Pre-Hospital aspirin (Matias ESCALONA,Christopher) Past History Travel History Traveled to [place] past 21 day No Medical History Any Pertinent Medical History? see below for history Neurological: CVA, migraine, TIA EENT: PREGLAUCOMA CATARACT SX Cardiovascular: hypertension, CHOLESTEROL AORTIC STENOSIS Respiratory: asthma, COPD, pneumonia Gastrointestinal: diverticulitis, GERD Hepatic: NONE Renal: NONE Musculoskeletal: SPINAL STENOSIS Psychiatric: depression Endocrine: diabetes, HYPOTHYROID Blood Disorders: NONE Cancer(s): breast cancer (s/p chemo/RT 8 yrs [employer]) SUMMER INTERNSHIP/Reproductive: NONE Other Medical Hx: Rheumatic fever History of MRSA: No History of VRE: No History of CDIFF: No Surgical History Surgical History: cholecystectomy, ABDOMINAL SURGERY CHILD , UNSURE OF WHY, PARTIAL HYSTERECTOMY RT MASTECTOMY Psychosocial History Who do you live with Daughter Services at Home None What is your primary language Cymro Tobacco Use: Quit >30 days ago ETOH Use: occasional use Family History Family History, If Any: SISTER FH: diabetes mellitus MOTHER FH: myocardial infarction, Onset: 60+. FATHER Sciatica Hx Contributory? No (Chet Patel) Review of Systems Review of Systems Constitutional: Reports: malaise, weakness. EENTM: Reports: no symptoms. Respiratory: Reports: no symptoms. Cardiovascular: Reports: no symptoms. GI: Reports: see HPI, abdominal pain, nausea. Genitourinary: Reports: no symptoms. Musculoskeletal: Reports: no symptoms. Skin: Reports: no symptoms. Neurological/Psychological: Reports: see HPI, weakness, other. Hematologic/Endocrine: Reports: no symptoms. Immunologic/Allergic: Reports: no symptoms. All Other Systems: Reviewed and Negative (Chet Patel) Physical Exam Physical Exam General Appearance: well developed/nourished, no apparent distress, lethargic, on initial evaluation patient is responsive to painful and loud verbal stimuli only Head: atraumatic, normal appearance Eyes: Bilateral: normal appearance, PERRL, EOMI. Ears, Nose, Throat: hearing grossly normal Neck: normal inspection, supple, full range of motion Respiratory: normal breath sounds, chest non-tender, no respiratory distress, lungs clear Cardiovascular: regular rate/rhythm, normal peripheral pulses Peripheral Pulses: 2+ radial (R), 2+ radial (L) Gastrointestinal: normal bowel sounds, soft, non-tender, no organomegaly Back: normal inspection, normal range of motion, no vertebral tenderness Extremities: normal inspection, normal range of motion, no edema Neurologic/Psych: responsive to loud verbal and painful stimuli only only responding in one-word answers or groaning Skin: intact, normal color, warm/dry Lymphatic: no anterior cervical kennedi Core Measures ACS in differential dx? No CVA/TIA Diagnosis: No Sepsis Present: No Sepsis Focused Exam Completed? No (Santino PHELPS,Chet) Progress Differential Diagnoses I considered the following diagnoses in my evaluation of the patient: [CVA, TIA, sepsis, UTI, pneumonia, PE, COPD exacerbation, hypercarbia, medication side effect] Plan of Care: Orders Procedure Date/time Status Regular Diet 05/06 B Active Radha Coma Scale 05/05 2345 Active Intake & Output 05/05 2233 Active OXYGEN SETUP (GEN) 05/05 2048 Active Saline Lock 05/[address] in observation 05/05 204 Active Patient Data 05/05 2048 Active Vital Signs 05/05 2048 Active Activity/Ambulation 05/05 2048 Active Code Status 05/05 204 Active Straight Cath 05/05 1825 Active Add-on Test (ER Only) 05/05 1710 Active BLOOD CULTURE 05/05 1624 Active Add-on Test (ER Only) 05/05 1622 Active ARTERIAL BLOOD GAS (GEN) 05/05 1621 Complete LACTIC ACID 05/05 1610 Complete D-DIMER 05/05 1610 Complete URINALYSIS 05/05 1559 Complete TROPONIN LEVEL 05/05 1559 Complete COMPREHENSIVE METABOLIC PANEL 05/05 1559 Complete CBC WITHOUT DIFFERENTIAL 05/05 1559 Complete EKG 05/05 1559 Active Laboratory Tests 05/05/18 1825: Urine Color YEL, Urine Clarity CLEAR, Urine pH 6.0, Ur Specific [place] 1.025, Urine Protein NEG, Urine Ketones NEG, Urine Nitrite NEG, Urine Bilirubin NEG, Urine Urobilinogen 0.2, Ur Leukocyte Esterase NEG, Ur Microscopic EXAM NOT REQUIRED, Urine Hemoglobin NEG, Urine Glucose NEG 05/05/18 1630: pH 7.36, pCO2 45, pO2 112 H, HCO3 25, ABG O2 Sat (Measured) 97.0, P-50 (Temp Corrected) N, Carboxyhemoglobin 0.3 L, O2 Concentration % 1.5L, Temperature 98.2, O2 Delivery Method NC, Phlebotomy Draw Site LEFT RADIAL 05/05/18 1610: Anion Gap 6, Estimated GFR > 60, BUN/Creatinine Ratio 18.8, Glucose 104 H, Lactic Acid 0.7, Calcium 9.3, Total Bilirubin 0.4, AST 28, ALT 24, Alkaline Phosphatase 123, Troponin I < 0.01, Total Protein 6.4, Albumin 3.6, Globulin 2.8 , Albumin/Globulin Ratio 1.3, D-Dimer High Sensitivty 225, CBC w Diff NO MAN DIFF REQ, RBC 4.37, MCV 81.5, MCH 27.3, MCHC 33.5, RDW 18.1 H, MPV 8.8, Gran % 60.6, Lymphocytes % 26.8, Monocytes % 7.6, Eosinophils % 3.8, Basophils % 1.2, Absolute Granulocytes 2.1, Absolute Lymphocytes 0.9 L, Absolute Monocytes 0.3, Absolute Eosinophils 0.1, Absolute Basophils 0 Microbiology 05/05 1705 BLOOD: Blood Culture - RECD 05/05 1640 BLOOD: Blood Culture - RECD Patient seen and evaluated. On initial evaluation she arrives responsive to painful stimuli and loud verbal stimuli only. She is only responding of 1 word responses she is unable to contribute history. This appears to be significant changes patient uses able to walk and is alert and oriented 3. She appears neurologically intact without any localizing symptoms. Labs EKG CT head ordered. Patient had received IV Zofran in route to the hospital by EMS family reported that she is allergic to this they're concerned she may be having allergic reaction they requested she receive Benadryl 25 mg ordered. Patient was already having altered mental status/change in mental status before this medication. Blood work is not showing any significant change from previous. ABG is not showing any retained carbon dioxide. CT scans of the head chest abdomen pelvis are also not showing any acute findings. Patient is starting to return to her baseline slowly she is now answering more questions. She does not offer any complaints and is requesting to go home. She will continue to be monitored. Patient continues to return to her baseline. She is now responding in full sentences she reports she is feeling well. She was ambulated in the emergency department and has a steady gait. She did not desaturate. Patient is beginning to return to her baseline however due to the significant change on her arrival she'll be kept in the emergency department for emergency department observation. She'll see physical therapy in the morning she'll continue to be monitored overnight. Case discussed with Dr. salcedo he agrees. Patient signed out to Dr. Salcedo pending reevaluation Diagnostic Imaging: Viewed by Me: Radiology Read. Discussed w/RAD: Radiology Read. CXR Impression: PATIENT: RASHAD ARNOLD PRESENT AGE: 82 PATIENT ACCOUNT NO: [id number] : 35 LOCATION: [facility] ORDERING PHYSICIAN: Chet PHELPS SERVICE DATE: 05/05/18 EXAM TYPE: RAD - XRY- PORTABLE CHEST XRAY EXAMINATION: XR PORTABLE CHEST CLINICAL INFORMATION: Lethargic. Presumptive diagnosis of pneumonia, CHF. COMPARISON: Multiple prior chest x-rays, most recent of which is dated 12/07/2017. TECHNIQUE: Portable AP semierect view of the chest was obtained. FINDINGS: EKG leads overlie the chest. The cardiomediastinal silhouette is prominent in size, likely due to the AP technique and low lung volumes. Calcification and ectasia of the aorta is also seen. Central vascular congestion is seen. No overt pulmonary edema is noted. Low lung volumes are noted with some atelectatic changes in the left lung base seen. Lungs are otherwise unremarkable. There are several alessia seen in the right axilla and portions of a right humeral mid and distal shaft fracture fixation hardware are seen. IMPRESSION: 1. Low lung volumes with atelectatic changes in the left lung base. 2. No dense consolidation. 3. Central vascular congestion. No pulmonary edema. DICTATED BY: Pricila Aragon MD DATE/TIME DICTATED:05/05/181644 INDUSTRIAL THERAPIST:GLENYS DATE/TIME TRANSCRIBED:1644 CONFIDENTIAL, DO NOT COPY WITHOUT APPROPRIATE AUTHORIZATION. < Electronically signed in Other Vendor System> SIGNED BY: Pricila Aragon MD 05/05/18 1651 Initial ED EKG: normal sinus rhythm, no ST T wave changes Hand-Off Endorsed To: Christopher Salcedo MD Endorsed Time: 2300 Pending: other (Santino PHELPS,Chet) Comments: 05/06/18 07:10 pt signed out to me by dr salcedo. 05/06/2018 9:43:18 AM patient is ambulated well here in the emergency department and offers no complaints currently. She states that she "feels much better this morning". She will call her daughter for a ride home. (Mirna ESCALONA,Justus Crawford) Differential Diagnoses I considered the following diagnoses in my evaluation of the patient: Hand-Off Endorsed To: Justus Bradley MD Endorsed Time: 0700 Pending: other (condition, ambulation) (Matias ESCALONA,Christopher) Departure Departure Condition: Stable Clinical Impression Primary Impression: Altered mental status Qualifiers: Altered mental status type: unspecified Qualified Code: R41.82 - Altered mental status, unspecified Referrals: Yossi Freitas MD (PCP/Family) Departure Forms: Customer Survey General Discharge Information (Chet Patel) Departure Disposition: HOME OR SELF CARE Additional Instructions: Follow-up with your primary care physician tomorrow for reevaluation and any additional testing as indicated. Return if any concerns or sudden worsening. Please note that there might be incidental findings in your evaluation that are unrelated to the current emergency department visit. Please notify your primary care doctor about this emergency department visit in order to obtain and review all of the testing performed so that these incidental findings can be monitored as needed. If you had an x-ray performed, please understand that some fractures or other findings may not be seen on the initial set of x-rays. If your symptoms persist you might need a repeat set of x-rays to check for such a fracture. If you had a laceration evaluated, please understand that foreign bodies such as glass or wood may not be visible to the naked eye or on plain x-rays. If the wound becomes red, swollen, increasingly more painful or if there is any drainage from the wound, please have it reevaluated by a physician for the possibility of a retained foreign body. If you're unable to follow up as outlined in the discharge instructions please return to the emergency department. Thank you for choosing the [facility] Emergency Department for your care. It was a pleasure to serve you today. Justus Bradley M.D. [facility] LENIN/JAUNY Co-Sign Statement Statement: ED Attending supervision documentation- [X] I saw and evaluated the patient. I have also reviewed all the pertinent lab results and diagnostic results. I agree with the findings and the plan of care as documented in the PA's/BOOM MASTER's documentation. Patient presents for evaluation of altered mental status today. Physical examination reveals a lethargic- appearing woman with a nonfocal neurologic examination. [] I have reviewed the ED Record and agree with the PA's/BOOM MASTER's documentation. [] Additions or exceptions (if any) to the PAs/BOOM MASTER's note and plan are summarized below: [] (Mirna ESCALONA,Justus Crawford) PA/BOOM MASTER Co-Sign Statement Statement: ED Attending supervision documentation- x I saw and evaluated the patient. I have also reviewed all the pertinent lab results and diagnostic results. I agree with the findings and the plan of care as documented in the PA's/BOOM MASTER's documentation. [] I have reviewed the ED Record and agree with the PA's/BOOM MASTER's documentation. [] Additions or exceptions (if any) to the PAs/BOOM MASTER's note and plan are summarized below: [] (Christopher Salcedo MD) Critical Care Note Critical Care Note Critical Care Time: non-applicable (Chet Patel) ED Attending Observation Initial Observation Note: I have seen and personally examined RASHAD ARNOLD on 05/05/18 at 2200. I agree with the current emergency department documentation. The disposition (admission or discharge) is uncertain at this time, she needs a period of observation for the following reason(s): generalized weakness, lethargy The ED Nurse caring for this patient has been personally informed as to what the patient is being observed for. (Christopher Salcedo MD)
--- NOTE | 2018-05-05 16:51 | RADIOLOGY REPORT ---
EXAMINATION: XR PORTABLE CHEST CLINICAL INFORMATION: Lethargic. Presumptive diagnosis of pneumonia, CHF. COMPARISON: Multiple prior chest x-rays, most recent of which is dated 12/07/2017. TECHNIQUE: Portable AP semierect view of the chest was obtained. FINDINGS: EKG leads overlie the chest. The cardiomediastinal silhouette is prominent in size, likely due to the AP technique and low lung volumes. Calcification and ectasia of the aorta is also seen. Central vascular congestion is seen. No overt pulmonary edema is noted. Low lung volumes are noted with some atelectatic changes in the left lung base seen. Lungs are otherwise unremarkable. There are several alessia seen in the right axilla and portions of a right humeral mid and distal shaft fracture fixation hardware are seen. IMPRESSION: 1. Low lung volumes with atelectatic changes in the left lung base. 2. No dense consolidation. 3. Central vascular congestion. No pulmonary edema.
--- NOTE | 2018-05-05 17:14 | CT SCAN REPORT ---
EXAMINATION: CT HEAD WITHOUT CONTRAST CLINICAL INFORMATION: Altered mental status. COMPARISON: CT head dated 12/16/2016. TECHNIQUE: Contiguous axial imaging was performed from the skull base to vertex without intravenous administration of contrast. DLP: 621 mGy-cm FINDINGS: There is no evidence of acute intracranial hemorrhage or evolved territorial infarction. No abnormal mass effect or midline shift is seen. Anders to white matter differentiation is well preserved. No extra-axial fluid collections are identified. The ventricles are normal in size. There is confluent subcortical and periventricular white matter hypoattenuation compatible with moderate to severe underlying chronic small vessel angiopathy. The osseous structures and soft tissues are normal. The mastoid air cells and visualized portions of the paranasal sinuses are well aerated. IMPRESSION: 1. No acute intracranial pathology. 2. Redemonstrated moderate to severe chronic small vessel angiopathy.
--- NOTE | 2018-05-05 18:47 | CT SCAN REPORT ---
EXAMINATION: CT CHEST, ABDOMEN AND PELVIS WITHOUT CONTRAST CLINICAL INFORMATION: Chest pain, abdominal pain, lethargic. COMPARISON: CT chest dated 03/24/2017, CT abdomen and pelvis dated 02/24/2016. TECHNIQUE: Multidetector volumetric imaging was performed from the thoracic inlet through the pubic symphysis without oral or intravenous contrast. Sagittal and coronal reformatted images were obtained on the technologist workstation. Total exam dose-length product 470 mGy-cm FINDINGS: CHEST: LUNGS: Right Anteroapical pleural-parenchymal scarring is noted. Right axillary surgical clips are noted. Patchy subpleural opacity is also noted in the right middle lobe. MEDIASTINUM: Small hiatal hernia noted. Normal heart size. No pericardial effusion. No hilar or mediastinal lymphadenopathy. VASCULAR: Aortic arch atherosclerotic calcifications are noted. Three-vessel coronary calcifications are present. No thoracic aortic aneurysm. ABDOMEN/PELVIS: LIVER, GALLBLADDER, AND BILIARY TREE: The liver is normal in size, shape, and attenuation on this unenhanced scan. No focal hepatic lesion or biliary ductal dilatation is present. The gallbladder surgically absent. PANCREAS: Normal; no mass or surrounding fluid. SPLEEN: Normal size. No focal lesion. ADRENAL GLANDS: Normal; no mass. KIDNEYS AND URETERS: The kidneys are normal in size, shape, and attenuation. No hydronephrosis, hydroureter, or calculi. GASTROINTESTINAL TRACT: Stomach and small bowel are nondilated. There is diffuse colonic diverticulosis without evidence of acute diverticulitis. Normal appendix. ABDOMINAL WALL: Fat-containing umbilical hernia noted. LYMPHOVASCULAR STRUCTURES: No lymphadenopathy. There is diffuse atherosclerotic vascular calcification within the abdominal aorta without abdominal aortic aneurysm. BLADDER: No focal mass or wall thickening seen. No bladder calculi. PELVIC VISCERA: The uterus is not well-visualized and may be surgically absent. No adnexal masses. OSSEOUS STRUCTURES: Redemonstrated bilateral L4 laminectomies. There is diffuse degenerative change throughout the thoracolumbar spine with vacuum disc phenomenon noted at multiple levels. Degenerative grade 1 anterolisthesis of L4 on L5 is unchanged. Bilateral hip arthrosis and right sacroiliac joint degenerative change is noted. Subchondral cysts formation is noted in the left humeral head. IMPRESSION: 1. No acute abnormalities in the chest, abdomen, or pelvis. 2. Right axilla surgical clips with right anteroapical pleural-parenchymal scarring, possibly radiation related if the patient has received radiation to the right breast. 3. Small hiatal hernia. 4. Diffuse findings of atherosclerotic disease with three-vessel coronary calcification noted. No aortic aneurysm. 5. Diffuse colonic diverticulosis without evidence of acute diverticulitis. 6. Diffuse osseous degenerative changes as described.
[2018-05-06 09:30] VITALS: BP 130/78
== END 2018-05-06 16:26 ==
LOC: ERH 15:48 → ERHI 20:48 → CMPBEDREQ 05-06 14:33 → ERHI 05-06 16:26
PROVIDERS: Physician Assistant Medical
DX: R41.82 Altered mental status, unspecified (principal); Z85.3 Personal history of malignant neoplasm of breast; Z86.73 Personal history of transient ischemic attack (TIA), and cerebral infarction without residual deficits; Z87.891 Personal history of nicotine dependence; I10 Essential (primary) hypertension; I35.0 Nonrheumatic aortic (valve) stenosis; J44.9 Chronic obstructive pulmonary disease, unspecified; E11.9 Type 2 diabetes mellitus without complications; E03.9 Hypothyroidism, unspecified; Z79.82 Long term (current) use of aspirin; F32.9 Major depressive disorder, single episode, unspecified; G43.909 Migraine, unspecified, not intractable, without status migrainosus; K21.9 Gastro-esophageal reflux disease without esophagitis
CPT/HCPCS: 6090; 71045; 74176; 81003; 87040; 93005; 93010; 96374; G0378; J1200